=== PATIENT | female | born 1960 | race Caucasian/White ===

== ENCOUNTER → 2019-02-10 15:41 | Outpatient (CLI) | payer OTHER, SELFPAY ==
--- NOTE | 2019-02-10 | DI.MG.S_ITS ---
BILATERAL DIGITAL SCREENING MAMMOGRAM 3D/2D WITH CAD: 02/10/2019 CLINICAL: Routine screening. Comparison is made to exams dated: 11/14/2012 mammogram, 08/19/2011 mammogram, 02/12/2011 mammogram, and 01/28/2011 mammogram - [facility]. There are scattered fibroglandular elements in both breasts. Current study was also evaluated with a Computer Aided Detection (CAD) system. No significant masses, calcifications, or other findings are seen in either breast. There has been no significant interval change. IMPRESSION: NEGATIVE There is no mammographic evidence of malignancy. A 1 year screening mammogram is recommended. This exam was interpreted at Station ID: [id number]. NOTE: For mammograms, a report in lay terms will be sent to the patient. Approximately 15% of breast malignancies will not be visualized mammographically. In the management of a palpable breast mass, a negative mammogram must not discourage biopsy of a clinically suspicious lesion. Electronically Signed By: Chary cordero/jef:02/10/2019 17:18:30 letter sent: Normal Exam ACR BI-RADS Category 1: Negative [id number]
== END ==
PROVIDERS: Family Provider Internal Medicine; PCP Internal Medicine; Visit Provider Internal Medicine
DX: Z12.31 Encounter for screening mammogram for malignant neoplasm of breast (principal)
CPT/HCPCS: 77063; 77067

== ENCOUNTER → 2019-10-24 17:39 | Outpatient (CLI) | payer OTHER, SELFPAY | PROVIDERS: Family Provider Internal Medicine; PCP Internal Medicine; Visit Provider Physician Assistant | DX: J02.9 Acute pharyngitis, unspecified (principal); J32.9 Chronic sinusitis, unspecified | CPT/HCPCS: 87070 ==

== ENCOUNTER → 2020-12-04 08:10 | Outpatient (CLI) | payer OTHER, SELFPAY ==
[2020-12-04] MEDS: COVID-19 VACC, Ad26(JANSSEN)/PF 0.5 ML IM (08:25)
== END ==
PROVIDERS: Family Provider Internal Medicine; PCP Internal Medicine; Visit Provider Internal Medicine
DX: Z23 Encounter for immunization (principal)
CPT/HCPCS: 0031A; 91303

== ENCOUNTER → 2021-02-11 07:40 | Outpatient (CLI) | payer OTHER, SELFPAY ==
--- NOTE | 2021-02-11 | DI.US.S_ITS ---
PROCEDURE: US ABDOMEN LIMITED INDICATIONS: RUQ PAIN TECHNIQUE: Real-time focused scanning was performed of the abdomen, with image documentation. COMPARISON: None. FINDINGS: The liver is normal in size and demonstrates no focal lesions. 3-4 mobile stones can be seen within the gallbladder, which measure up to 7 mm. The gallbladder wall is not thickened, measuring 3 mm or less. No specific pericholecystic fluid is seen. The sonographic Browning sign is negative. There is no biliary dilatation, the common bile duct measures 3 mm. No significant pancreatic abnormality is seen on these images. IMPRESSION: Gallstones are seen, yet without additional sonographic signs of cholecystitis. Negative for biliary dilatation. Please correlate with physical examination findings, patient presentation, and laboratory values. Dictated by: Blayne Wallace M.D. on 02/11/2021 at 16:47 Approved by: Blayne Wallace M.D. on 02/11/2021 at 16:48
== END ==
PROVIDERS: Family Provider Internal Medicine; PCP Physician Assistant; Referring Provider Physician Assistant; Visit Provider Physician Assistant
DX: R10.11 Right upper quadrant pain (principal)
CPT/HCPCS: 76705

== ENCOUNTER → 2023-06-14 08:56 | Outpatient (CLI) | payer OTHER, SELFPAY ==
[2023-06-14 10:18] LABS: Alanine Aminotransferase 31 IU/L (<35); Albumin 4.3 g/dL (3.5-5.0); Albumin Globulin Ratio 1.4 (1.0-2.8); Alkaline Phosphatase 56 U/L (38-126); Aspartate Aminotransferase 36 IU/L (14-36); BUN Creatinine Ratio 16.9 (6-22); Bilirubin Total 0.7 mg/dL (0.2-1.3); Blood Urea Nitrogen 13 mg/dL (7-17); Calcium 9.1 mg/dL (8.4-10.2); Carbon Dioxide 29 mmol/L (22-32); Chloride 106 mmol/L (98-107); Estimated Glomerular Filt Rate > 60 mL/min (>60); Glucose 110 mg/dL (80-110); HEMOLYSIS < 15 (0-50); Potassium 4.7 mmol/L (3.4-5.1); Sodium 140 mmol/L (137-145); Total Protein 7.3 g/dL (6.3-8.2)
[2023-06-14 11:00] LABS: Hep C Virus Ab w/Reflex Quant NEGATIVE s/c (NEGATIVE)
[2023-06-15 02:36] LABS: Cholesterol HDL Ratio 3.4 ratio (0.0-4.4); Cholesterol,Total 223 mg/dL (100-199); HDL Cholesterol 65 mg/dL (>39); LDL Cholesterol Cal 144 mg/dL (0-99); Triglycerides 79 mg/dL (0-149); VLDL Cholesterol Cal 14 mg/dL (5-40)
== END ==
PROVIDERS: Family Provider Internal Medicine; PCP Physician Assistant; Referring Provider Nurse Practitioner Family; Visit Provider Nurse Practitioner Family
DX: Z11.59 Encounter for screening for other viral diseases (principal); Z13.220 Encounter for screening for lipoid disorders
CPT/HCPCS: 36415; 80053; 80061; 86803

== ENCOUNTER → 2024-09-06 14:44 | Outpatient (CLI) | payer OTHER, SELFPAY ==
[2024-09-06 15:41] LABS: Add Manual Diff / Slide Review NO; Basophils Absolute Auto 100 /uL (0-100); Basophils Percent Auto 0.7 % (0-2); Eosinophils Absolute Auto 300 /uL (0-450); Eosinophils Percent Auto 3.3 % (2-4); Hematocrit 35.4 % (36-46); Hemoglobin 12.5 g/dL (12.0-16.0); Lymphocytes Absolute Auto 2900 /uL (1100-4500); Lymphocytes Percent Auto 36.6 % (25-40); Mean Corpuscular HGB Conc 35.2 % (30-36); Mean Corpuscular Hemoglobin 28.9 PG (26-34); Mean Corpuscular Volume 82.3 fL (80-100); Monocytes Absolute Auto 600 /uL (0-900); Monocytes Percent Auto 6.9 % (3-14); Neutrophils Absolute Auto 4200 /uL (1500-7000); Neutrophils Percent Auto 52.5 % (50-75); Platelet Count 235 X10^3/uL (150-400); Red Blood Cell Count 4.31 X10^6/uL (4.0-5.2)
[2024-09-06 16:55] LABS: HEMOLYSIS < 15 (0-50); Iron 76 ug/dL (37-170)
[2024-09-06 16:57] LABS: Alanine Aminotransferase 33 IU/L (<35); Albumin 4.4 g/dL (3.5-5.0); Albumin Globulin Ratio 1.5 (1.0-2.8); Alkaline Phosphatase 68 U/L (38-126); Aspartate Aminotransferase 34 IU/L (14-36); BUN Creatinine Ratio 15.1 (6-22); Bilirubin Total 0.9 mg/dL (0.2-1.3); Blood Urea Nitrogen 13 mg/dL (7-17); Calcium 9.4 mg/dL (8.4-10.2); Carbon Dioxide 26 mmol/L (22-32); Chloride 104 mmol/L (98-107); Cholesterol 237 mg/dL (140-199); Estimated Glomerular Filt Rate > 60 mL/min (>60); Globulin 2.9 g/dL (1.7-4.1); Glucose 110 mg/dL (80-110); HDL Cholesterol 63 mg/dL (40-60); HEMOLYSIS < 15 (0-50); LDL Cholesterol Calculated 134 mg/dL (<100); Sodium 136 mmol/L (137-145); Total Protein 7.3 g/dL (6.3-8.2); Triglycerides 199 mg/dL (35-150)
[2024-09-06 16:59] LABS: Hemoglobin A1C% w Est Avg Glu 5.3 % (4.0-6.0)
[2024-09-06 17:09] LABS: Percent Iron Saturation 23 % (15-50); Total Iron Binding Capacity 325 ug/dL (265-497); Transferrin 295 mg/dL (206-381)
[2024-09-06 17:27] LABS: TSH w/ Reflex to FT4 1.61 uIU/mL (0.47-4.68)
== END ==
PROVIDERS: Family Provider Internal Medicine; PCP Nurse Practitioner Family; Referring Provider Nurse Practitioner Family; Visit Provider Nurse Practitioner Family
DX: M17.9 Osteoarthritis of knee, unspecified (principal); I10 Essential (primary) hypertension; D64.9 Anemia, unspecified; L71.9 Rosacea, unspecified; E78.2 Mixed hyperlipidemia; K21.9 Gastro-esophageal reflux disease without esophagitis; J32.9 Chronic sinusitis, unspecified; R35.89 Other polyuria
CPT/HCPCS: 36415; 80053; 80061; 83036; 83540; 83550; 84443; 85025

== ENCOUNTER → 2025-04-05 07:49 | Outpatient (CLI) | payer OTHER, SELFPAY ==
--- NOTE | 2025-04-05 07:50 | DI.MG.S_ITS ---
MM screening mammo BI: 04/05/2025. BI-RADS: 1 CLINICAL: 64-year old female for bilateral screening mammogram. Tyrer-Cuzick lifetime risk of 15.8%. Current reported family history of breast cancer: mother. PRIOR EXAMS 02/10/2019. MAMMOGRAPHY TECHNIQUE: 2D and 3D (tomosynthesis) digital mammographic views obtained, with additional images as needed for full coverage. Current study was also evaluated with a Computer Aided Detection (CAD) system. DENSITY B. There are scattered areas of fibroglandular density. MAMMOGRAPHY FINDINGS Bilateral: No suspicious mass, asymmetry, microcalcification, or other abnormality seen. No significant change from comparison. IMPRESSION: * No evidence of malignancy. RECOMMENDATIONS Bilateral * Annual screening mammography. OVERALL ASSESSMENT CATEGORY BI-RADS-1: Negative. The [employer] recommends annual screening mammography beginning at age 40 for women with average risk of breast cancer. ELECTRONICALLY SIGNED: Chantel Horvath M.D. on 04/05/2025 at 10:22:52 PM PT Interpreting Station ID: [id number]
== END ==
PROVIDERS: PCP Nurse Practitioner Family; Referring Provider Nurse Practitioner Family; Visit Provider Nurse Practitioner Family
DX: Z12.31 Encounter for screening mammogram for malignant neoplasm of breast (principal); Z80.3 Family history of malignant neoplasm of breast
CPT/HCPCS: 77063; 77067

== ENCOUNTER → 2025-06-07 15:39 | Outpatient (CLI) | payer OTHER, SELFPAY ==
--- NOTE | 2025-06-07 15:40 | DI.RAD.S_ITS ---
PROCEDURE: XR FOOT RT MIN 3V INDICATIONS: right pinky toe injury TECHNIQUE: 3 views of the foot were acquired. COMPARISON: None. FINDINGS: Bones: No fractures or dislocations. Valgus angulation about the 1st metatarsophalangeal joint measures 32???. Postsurgical changes are noted. No evidence of hardware complication. No suspicious bony lesions. Plantar and retrocalcaneal enthesopathy. Soft tissues: No tibiotalar joint effusion. Achilles tendon appears normal. IMPRESSION: Moderate hallux valgus and postsurgical change without evidence of acute bony abnormality or hardware complication. Dictated by: Raul Finney M.D. on 06/11/2025 at 4:48 Approved by: Raul Finney M.D. on 06/11/2025 at 4:49
== END ==
PROVIDERS: PCP Nurse Practitioner Family; Referring Provider Nurse Practitioner Family; Visit Provider Nurse Practitioner Family
DX: S97.121A Crushing injury of right lesser toe(s), initial encounter (principal); S99.921A Unspecified injury of right foot, initial encounter; M20.11 Hallux valgus (acquired), right foot; M77.31 Calcaneal spur, right foot
CPT/HCPCS: 73630

== ENCOUNTER 2025-06-21 12:40 | Emergency (ER) | payer OTHER, SELFPAY ==
[2025-06-21 13:18] VITALS: BP 181/96; PULSE 81; RESP 16; TEMP 36.7; O2SAT 100; BMI 30.2
--- NOTE | 2025-06-21 13:33 | DI.CT.S_ITS ---
PROCEDURE: CT CERVICAL SPINE WO CON INDICATIONS: Fall, Racoon eye bruising, facial swelling TECHNIQUE: Noncontrast 3 mm thick sections acquired from the skull base to the T4 level. Sagittal and coronal reformats were then constructed. For radiation dose reduction, the following was used: automated exposure control, adjustment of mA and/or kV according to patient size. COMPARISON: [facility], CT, CT HEAD/BRAIN WO CON, 06/21/2025, 13:48. [facility], CT, CT FACIAL BONES WO CON, 06/21/2025, 13:48. FINDINGS: Image quality: This examination is somewhat limited by quantum mottle artifact. Bones: No fractures or dislocations. Visualized superior ribs are intact. Moderate to severe disc space narrowing can be seen at C5-C6 and C6-C7. Milder degenerative changes are seen elsewhere. Several levels of facet hypertrophy can be seen. There is overall straightening of the normal cervical lordosis. No focal AP alignment abnormality is seen. Soft tissues: Prevertebral soft tissues are normal in thickness. No paravertebral hematomas. No apical pneumothoraces. IMPRESSION: No displaced fracture or traumatic subluxation. Cervical spine degenerative changes are seen, which are worst inferiorly. Dictated by: Blayne Wallace M.D. on 06/21/2025 at 13:03 Approved by: Blayne Wallace M.D. on 06/21/2025 at 13:04
--- NOTE | 2025-06-21 13:33 | DI.CT.S_ITS ---
PROCEDURE: CT HEAD/BRAIN WO CON INDICATIONS: Fall, Racoon eye bruising, facial swelling TECHNIQUE: Noncontrast 4.5 mm thick angled axial sections acquired from the foramen magnum to the vertex, with coronal and sagittal reformats. For radiation dose reduction, the following was used: automated exposure control, adjustment of mA and/or kV according to patient size. COMPARISON: [facility], CT, CT FACIAL BONES WO CON, 06/21/2025, 13:48. [facility], CT, CT CERVICAL SPINE WO CON, 06/21/2025, 13:48. FINDINGS: Image quality: Diagnostic. CSF spaces: Basal cisterns are patent. No extra-axial fluid collections. The ventricles are symmetric in size and shape. Brain: No intracranial bleeds or mass effect. There is cerebral volume loss, with resultant ventricular and sulcal prominence. There are periventricular and deep white matter chronic small vessel ischemic changes. There is intracranial internal carotid artery atherosclerosis. Skull and face: Calvarium and visualized facial bones appear intact, without suspicious lesions. Sinuses: Visualized sinuses and mastoids are clear. IMPRESSION: No acute intracranial hemorrhage is seen. No acute intracranial pathology. Dictated by: Blayne Wallace M.D. on 06/21/2025 at 13:01 Approved by: Blayne Wallace M.D. on 06/21/2025 at 13:02
--- NOTE | 2025-06-21 13:33 | DI.CT.S_ITS ---
PROCEDURE: CT FACIAL BONES WO CON INDICATIONS: Fall, Racoon eye bruising, facial swelling TECHNIQUE: Noncontrast 2.5 mm thick axial images acquired from the mandible through the frontal sinuses, with coronal and sagittal reformatting. For radiation dose reduction, the following was used: automated exposure control, adjustment of mA and/or kV according to patient size. COMPARISON: [facility], CT, CT HEAD/BRAIN WO CON, 06/21/2025, 13:48. [facility], CT, CT CERVICAL SPINE WO CON, 06/21/2025, 13:48. FINDINGS: Image quality: Excellent. Bones and teeth: Mildly displaced nasal bone fractures are seen, which are deviated to the left. Orbital hurley are intact. Sinus hurley show no fracture or deformity. There is chronic moderate rightward nasal septal deviation, with a rightward directed bony nasal septal spur. Visualized portions of the mandible demonstrate no fractures or subluxation. Zygomatic arches are intact. Pterygoid plates are intact. Visualized portions of the skull base and auditory canals are intact. Sinuses: Paranasal sinuses are aerated, without fluid levels, mucosal thickening, or mucoceles. Mastoid air cells are aerated. Soft tissues: Soft tissue swelling of the nose can be seen. No enlarged lymph nodes. No soft tissue lacerations or debris. Vascular: Visualized vascular structures appear normal in the absence of contrast. Bony vascular foramina and canals are intact. IMPRESSION: Mildly displaced nasal bone fractures are seen, which are deviated to the left. Associated soft tissue swelling is seen. Dictated by: Blayne Wallace M.D. on 06/21/2025 at 13:06 Approved by: Blayne Wallace M.D. on 06/21/2025 at 13:08
--- NOTE | 2025-06-21 15:01 | ED.FALL ---
HPI - Fall <Magda Mittal PA-C - Last Filed: 06/21/25 19:46> General Chief Complaint: Fall Stated Complaint: face injury, fell last night Time Seen by Provider: 06/21/25 14:59 Source: patient Mode of arrival: Family Vehicle History of Present Illness HPI Narrative: Ms. Shi is a pleasant 64-year-old female with a past medical history of hypertension, hyperlipidemia who presents to the emergency department for nasal pain after a trip and fall that occurred yesterday. Patient was walking at [place], standing on the side of the road waiting for a car to pass, when she attempted to step up onto the asphalt but her toes caught and she tripped and fell forward landing on her face. Patient states she has some mild right knee pain but primarily all of her pain is on the nose. There was no loss of consciousness, she has not on blood thinners, she has had no nausea or vomiting dizziness lightheadedness since the fall. She has been ambulating independently. She has been taking Advil for pain. She developed bruising of both eyes and on the nose which prompted her ER visit. She denies any difficulty with range of motion of the upper lower extremities. No neck pain, back pain, chest pain, abdominal pain. No epistaxis. Tdap was in 2023. Related Data Home Medications ?Medication ?Instructions ?Recorded ?Confirmed omeprazole 20 mg capsule,delayed 20 mg PO QDAY ##0 03/26/11 06/07/25 release ibuprofen 200 mg tablet (Advil) 200 mg PO PRN ##0 11/12/11 06/07/25 Previous Rx's ?Medication ?Instructions ?Recorded losartan 25 mg tablet 25 mg PO DAILY #180 tabs 05/03/25 cephalexin 500 mg capsule 500 mg PO TID 7 days #21 caps 06/21/25 Allergies Allergy/AdvReac Type Severity Reaction Status Date / Time codeine (CODEINE) Allergy Mild illness Verified 06/21/25 13:23 naproxen (From Aleve) Allergy Mild Rash Verified 06/21/25 13:23 Penicillins (PENICILLINS) Allergy Mild VOMITING Verified 06/21/25 13:23 SULFA AdvReac Mild MAYBE Uncoded 06/21/25 13:23 RASH, MAYBE SMALL RED BUMPS Review of Systems <Magda Mittal PA-C - Last Filed: 06/21/25 19:46> Review of Systems ROS Unobtainable: All systems reviewed & are unremarkable except as noted in HPI and below Patient History <Magda Mittal PA-C - Last Filed: 06/21/25 19:46> Medical History Elevated blood pressure reading without diagnosis of hypertension Hypertension Osteoarthritis of knee Knee pain Foot pain Mumps Chicken pox Hypertrophic cardiomegaly Rosacea (07/11/15) Gastroesophageal reflux disease without esophagitis Anemia Mixed hyperlipidemia Sinusitis Surgical History Anesthesia S/P bunionectomy (~2018) History of Achilles tendon repair (~2008) Status post delivery (04/29/94) Status post delivery (04/07/93) History of tonsillectomy (~1983) Family History Brother Age: 72 Brain tumor Brother Age: 71 Diabetes mellitus Father Congestive heart failure Prostate cancer Mother Diabetes mellitus Hypertension Mental health problem Sister Age: 69 Diabetes mellitus Grandfather Mental health problem Grandmother Hypertension Hyperlipidemia Stroke Grandfather History of heart disease Grandmother Cancer Exam <Magda Mittal PA-C - Last Filed: 06/21/25 19:46> Narrative Exam Narrative: GENERAL: 64 year old patient appears stated age. Well-developed patient, in no acute distress. HEAD: Atraumatic. Normocephalic. No scalp wounds. EYES: PERRL. Extraocular motions intact. No pain with EOMs. No scleral icterus. No injection or drainage. There is ecchymosis below both eyes extending onto the nasal bridge. ENT: Nasal bridge is anatomically midline. There is diffuse edema of the nose. There was no septal hematoma or epistaxis. The nares are patent. The nasal bridge is tender. No lacerations. No tenderness to palpation of the periocular regions or TMJ. Oropharynx is patent, uvula is midline. Clear ear canals and normal TMs bilaterally, no hemotympanum or hilario sign. NECK: Trachea midline. Cervical ROM intact. No midline tenderness. CARDIOVASCULAR: Regular rate and rhythm. RESPIRATORY: ?Nonlabored respirations. ?Speaking in clear, full sentences. ?Clear to auscultation. Breath sounds equal bilaterally. No wheezes, rales, or rhonchi. ? EXTREMITIES: No LE edema, tenderness, bruising or wounds. No tenderness to palpation of bilateral wrists, elbows, shoulders. BACK: Nontender without deformity or crepitance. No flank tenderness. NEURO: AOx3. ?Clear speech. ?Moves all 4 extremities appropriately. SKIN: Abrasions on nose and bruising around eyes described above. Otherwise skin is warm and dry. Initial Vital Signs Initial Vital Signs: Vital Signs Temperature 98.1 F 06/21/25 13:18 Pulse Rate 81 06/21/25 13:18 Respiratory Rate 16 06/21/25 13:18 Blood Pressure 181/96 H 06/21/25 13:18 Pulse Oximetry 100 06/21/25 13:18 Oxygen Delivery Method Room Air 06/21/25 13:18 <Prince Martinez MD - Last Filed: 06/22/25 07:04> Initial Vital Signs Initial Vital Signs: Vital Signs Temperature 98.1 F 06/21/25 13:18 Pulse Rate 81 06/21/25 13:18 Respiratory Rate 16 06/21/25 13:18 Blood Pressure 181/96 H 06/21/25 13:18 Pulse Oximetry 100 06/21/25 13:18 Oxygen Delivery Method Room Air 06/21/25 13:18 Course <Magda Mittal PA-C - Last Filed: 06/21/25 19:46> Orders Ordered: Discontinued Medications Acetaminophen (Acetaminophen 325 Mg Tablet) 975 mg PO NOW ONE Stop: 06/21/25 14:56 Last Admin: 06/21/25 15:48 Dose: Not Given Documented By: PEPE Diphtheria/Tetanus/Acell Pertussis (Tet,Diph,Pertuss(Acell),Vac/Pf 0.5 Ml Syringe) 0.5 ml IM .ONCE ONE Stop: 06/21/25 14:56 Last Admin: 06/21/25 15:18 Dose: Not Given Documented By: PEPE Lidocaine/Epinephrine (Lidocaine 1% W/Epi 10ml) 5 ml INJ NOW ONE Stop: 06/21/25 14:56 Last Admin: 06/21/25 15:48 Dose: Not Given Documented By: PEPE Vital Signs Vital signs: Vital Signs - 8 hr 06/21/25 13:18 06/21/25 15:49 Temperature 98.1 F Pulse Rate 81 76 Respiratory Rate 16 16 Blood Pressure 181/96 H 175/88 H Pulse Oximetry 100 99 Oxygen Delivery Method Room Air Room Air <Prince Martinez MD - Last Filed: 06/22/25 07:04> Orders Ordered: Discontinued Medications Acetaminophen (Acetaminophen 325 Mg Tablet) 975 mg PO NOW ONE Stop: 06/21/25 14:56 Last Admin: 06/21/25 15:48 Dose: Not Given Documented By: PEPE Diphtheria/Tetanus/Acell Pertussis (Tet,Diph,Pertuss(Acell),Vac/Pf 0.5 Ml Syringe) 0.5 ml IM .ONCE ONE Stop: 06/21/25 14:56 Last Admin: 06/21/25 15:18 Dose: Not Given Documented By: PEPE Lidocaine/Epinephrine (Lidocaine 1% W/Epi 10ml) 5 ml INJ NOW ONE Stop: 06/21/25 14:56 Last Admin: 06/21/25 15:48 Dose: Not Given Documented By: PEPE Vital Signs Vital signs: Vital Signs - 8 hr 06/21/25 13:18 06/21/25 15:49 Temperature 98.1 F Pulse Rate 81 76 Respiratory Rate 16 16 Blood Pressure 181/96 H 175/88 H Pulse Oximetry 100 99 Oxygen Delivery Method Room Air Room Air MDM - Fall <Magda Mittal PA-C - Last Filed: 06/21/25 19:46> Medical Records Attestation: I reviewed the patient's medical records. Imaging Data CT scan - head: Radiologist's Impression: PROCEDURE: CT HEAD/BRAIN WO CON INDICATIONS: Fall, Racoon eye bruising, facial swelling TECHNIQUE: Noncontrast 4.5 mm thick angled axial sections acquired from the foramen magnum to the vertex, with coronal and sagittal reformats. For radiation dose reduction, the following was used: automated exposure control, adjustment of mA and/or kV according to patient size. COMPARISON: [facility], CT, CT FACIAL BONES WO CON, 06/21/2025, 13:48. [facility], CT, CT CERVICAL SPINE WO CON, 06/21/2025, 13:48. FINDINGS: Image quality: Diagnostic. CSF spaces: Basal cisterns are patent. No extra-axial fluid collections. The ventricles are symmetric in size and shape. Brain: No intracranial bleeds or mass effect. There is cerebral volume loss, with resultant ventricular and sulcal prominence. There are periventricular and deep white matter chronic small vessel ischemic changes. There is intracranial internal carotid artery atherosclerosis. Skull and face: Calvarium and visualized facial bones appear intact, without suspicious lesions. Sinuses: Visualized sinuses and mastoids are clear. IMPRESSION: No acute intracranial hemorrhage is seen. No acute intracranial pathology. Dictated by: Blayne Wallace M.D. on 06/21/2025 at 13:01 Approved by: Blayne Wallace M.D. on 06/21/2025 at 13:02 Ct scan - face: Radiologist's Impression: PROCEDURE: CT FACIAL BONES WO CON INDICATIONS: Fall, Racoon eye bruising, facial swelling TECHNIQUE: Noncontrast 2.5 mm thick axial images acquired from the mandible through the frontal sinuses, with coronal and sagittal reformatting. For radiation dose reduction, the following was used: automated exposure control, adjustment of mA and/or kV according to patient size. COMPARISON: [facility], CT, CT HEAD/BRAIN WO CON, 06/21/2025, 13:48. [facility], CT, CT CERVICAL SPINE WO CON, 06/21/2025, 13:48. FINDINGS: Image quality: Excellent. Bones and teeth: Mildly displaced nasal bone fractures are seen, which are deviated to the left. Orbital hurley are intact. Sinus hurley show no fracture or deformity. There is chronic moderate rightward nasal septal deviation, with a rightward directed bony nasal septal spur. Visualized portions of the mandible demonstrate no fractures or subluxation. Zygomatic arches are intact. Pterygoid plates are intact. Visualized portions of the skull base and auditory canals are intact. Sinuses: Paranasal sinuses are aerated, without fluid levels, mucosal thickening, or mucoceles. Mastoid air cells are aerated. Soft tissues: Soft tissue swelling of the nose can be seen. No enlarged lymph nodes. No soft tissue lacerations or debris. Vascular: Visualized vascular structures appear normal in the absence of contrast. Bony vascular foramina and canals are intact. IMPRESSION: Mildly displaced nasal bone fractures are seen, which are deviated to the left. Associated soft tissue swelling is seen. Dictated by: Blayne Wallace M.D. on 06/21/2025 at 13:06 Approved by: Blayne Wallace M.D. on 06/21/2025 at 13:08 CT - cervical spine: Radiologist's Impression: PROCEDURE: CT CERVICAL SPINE WO CON INDICATIONS: Fall, Racoon eye bruising, facial swelling TECHNIQUE: Noncontrast 3 mm thick sections acquired from the skull base to the T4 level. Sagittal and coronal reformats were then constructed. For radiation dose reduction, the following was used: automated exposure control, adjustment of mA and/or kV according to patient size. COMPARISON: [facility], CT, CT HEAD/BRAIN WO CON, 06/21/2025, 13:48. [facility], CT, CT FACIAL BONES WO CON, 06/21/2025, 13:48. FINDINGS: Image quality: This examination is somewhat limited by quantum mottle artifact. Bones: No fractures or dislocations. Visualized superior ribs are intact. Moderate to severe disc space narrowing can be seen at C5-C6 and C6-C7. Milder degenerative changes are seen elsewhere. Several levels of facet hypertrophy can be seen. There is overall straightening of the normal cervical lordosis. No focal AP alignment abnormality is seen. Soft tissues: Prevertebral soft tissues are normal in thickness. No paravertebral hematomas. No apical pneumothoraces. IMPRESSION: No displaced fracture or traumatic subluxation. Cervical spine degenerative changes are seen, which are worst inferiorly. Dictated by: Blayne Wallace M.D. on 06/21/2025 at 13:03 Approved by: Blayne Wallace M.D. on 06/21/2025 at 13:04 [facility] Narrative Medical decision making narrative: 64-year-old female with a past medical history of hypertension, hyperlipidemia who presents to the emergency department for nasal pain after a trip and fall that occurred yesterday. Differential diagnosis includes but is not limited to ICH, nasal fracture, sprain, strain contusion, etc. On exam patient is in no acute distress, nontoxic appearing, vital signs appropriate except for elevated blood pressure. No chest pain, shortness of breath. She has bilateral raccoon eyes, nasal bridge tenderness but no deformity. CT head, face, cervical spine obtained in triage and when they came back negative for ICH she was brought back into the fast track area were evaluated her. No hemotympanum, hilario sign, cervical spine tenderness. She reports mild knee pain but declines x-ray, has full range of motion and no deformities. CT cervical spine reveals no displaced fracture or traumatic subluxation, head CT reveals no acute intracranial hemorrhage, face CT does reveal mildly displaced nasal bone fracture seen which are deviated to the left with the associated soft tissue swelling. Discussed case with the attending ER physician, we will treat empirically with Keflex t.i.d. x7 days, advised patient follow up with ENT for further management of nasal fracture. Discussed supportive care, Tylenol, icing, avoiding blowing her nose. Discussed strict ER return precautions and follow up with PCP. Patient verbalized understanding of all information agreeable with the plan. She is ambulatory stable for discharge home. Discharge Plan Departure Patient Disposition: Home Clinical Impression: Closed fracture nasal bone Qualifiers: Encounter type: initial encounter Qualified Code(s): S02.2XXA - Fracture of nasal bones, initial encounter for closed fracture Fall Qualifiers: Encounter type: initial encounter Qualified Code(s): W19.XXXA - Unspecified fall, initial encounter Instructions: DI for Nose Fracture Activity Restrictions/Additional Instructions: Dear Sangeeta Yuridia, Thank you for coming to the emergency department. Today you were evaluated for injury sustained after fall. CT scan of your facial bones revealed fractures of the nasal bones. Please call and schedule an appointment with [facility]NT for follow up. Please apply ice to the nasal bridge 4 times a day for 15 minutes to help with swelling. Use Tylenol as needed for pain. Avoid blowing the nose, sleeping on the nose, or manipulating the nose. Please complete the full course of prescribed antibiotics. If you develop a nosebleed, please apply firm pressure to the cartilage of the nose and lean forward for 15 minutes. Come to the ER of the bleeding can not be stopped easily at home. Return to the ER immediately you develop severe pain, persistent nosebleed, fevers or any other concerns. Please follow up with your primary care doctor within the next 2-3 days for ER follow-up. (If you do not have a PCP you can call [phone]. ?to schedule an appointment with an [facility] Primary Care Provider) IF YOU DEVELOP ANY NEW OR WORSENING SYMPTOMS, RETURN TO THE ER! Please read the attached instructions, they highlight more specific treatments and interventions for you at home. Thank you for letting me participate in your care, Magda Mittal PA-C Prescriptions: New cephalexin 500 mg capsule 500 mg PO TID 7 Days Qty: 21 0RF No Action omeprazole 20 MG capsule,delayed release(DR/EC) 20 mg PO QDAY Qty: 0 ibuprofen [Advil] 200 MG tablet 200 mg PO PRN Qty: 0 losartan 25 mg tablet 25 mg PO DAILY Qty: 180 1RF Referrals: Chi Gil MD [Physician, Ear, Nose, Throat] Alton Leong MD [Physician, Ear, Nose, Throat] Elsie Flowers FNP- [Primary Care Provider, Family Practice] Stand Alone Forms: Patient Portal/API ED Sign-out <Prince Martinez MD - Last Filed: 06/22/25 07:04> Cosign ED Attending Cosignature Attestation: I was immediately available in the department for consultation. ?This documentation has been reviewed and I agree with assessment and plan. Supervised by Prince Martinez MD
[2025-06-21 15:49] VITALS: BP 175/88; PULSE 76; RESP 16; O2SAT 99
== END 2025-06-21 15:44 | disposition home or self-care (01) ==
PROVIDERS: Emergency Provider Physician Assistant; PCP Nurse Practitioner Family
DX: S02.2XXA Fracture of nasal bones, initial encounter for closed fracture (principal); W01.0XXA Fall on same level from slipping, tripping and stumbling without subsequent striking against object, initial encounter
CPT/HCPCS: 70450; 70486; 72125; 99281; 99284